=== PATIENT | female | born 1955 | race Caucasian/White ===

== ENCOUNTER → 2016-08-05 | Outpatient (CLI) | payer BC | LOC: RAD 09:14 | PROVIDERS: ATTEND Family Medicine | DX: R11.10 Vomiting, unspecified (principal) | CPT/HCPCS: 74220 ==

== ENCOUNTER → 2016-10-31 | Outpatient (CLI) | payer BC ==
--- NOTE | 2016-10-31 14:40 | WOMENS IMAGING REPORT ---
EXAM DESCRIPTION: BILAT SCREENING MAMMO W/CAD COMPLETED DATE/TIME: 10/31/2016 2:05 pm REASON FOR STUDY: Z12.31, ROUTINE SCREENING MAMMO Z12.31 ENCNTR SCREEN MAMMOGRAM FOR MALIGNANT NEOP LASM OF YADY COMPARISON: 10/27/2015 and 09/05/2014. TECHNIQUE: Standard craniocaudal and mediolateral oblique views of each breast recorded using digita l acquisition. LIMITATIONS: None. FINDINGS: Findings present which are benign by mammographic criteria. No suspicious masses, calcifi cations or architectural distortion. Pertinent benign findings: Stable small nodule in the upper-outer right breast and benign calcificati ons in the left breast. Read with the assistance of CAD. .[facility] - R2 Cenova Version 1.3 .[facility] - R2 Cenova Version 1.3 .[facility] - R2 Cenova Version 2.4 .[facility] [place] - R2 Cenova Version 2.4 .[facility] - R2 Wet Trimmer Version 9.2 Benign mammographic findings may include one or more of the following: Smooth masses, popcorn/rim/co arse calcifications, asymmetries, post-procedure changes, and lesions with long-standing stability. IMPRESSION: BENIGN MAMMOGRAPHIC FINDINGS. BIRADS 2 BREAST DENSITY: b. There are scattered areas of fibroglandular density. BIRAD: 2 BENIGN FINDING(S) RECOMMENDATION: ROUTINE SCREENING COMMENT: The patient has been notified of the results by letter per SA requirements. Additional no tification policies are in place for contacting patient with suspicious or incomplete findings. Quality ID #[id number]: The [employer] recommends an annual screening mammogram for women aged 40 years or over. This facility utilizes a reminder system to ensure that all patients receive reminder letters, and/or direct phone calls for appointments. This includes reminders for routine scr eening mammograms, diagnostic mammograms, or other Breast Imaging Interventions when appropriate. Th is patient will be placed in the appropriate reminder system. The [employer] (ACR) has developed recommendations for screening MRI of the breast s in certain patient populations, to be used in conjunction with mammography. Breast MRI surveillanc e may be appropriate for women with more than 20% lifetime risk of developing breast cancer as deter mined by genetic testing, significant family history of the disease, or history of mantle radiation f or Hodgkins Disease. ACR Practice Guidelines 2008. TECHNICAL DOCUMENTATION: FINDING NUMBER: (1) ASSESSMENT: (1) JOB ID: [id number] [employer]- All Rights Reserved
== END ==
LOC: WI 13:51
PROVIDERS: ATTEND Family Medicine
DX: Z12.31 Encounter for screening mammogram for malignant neoplasm of breast (principal)
CPT/HCPCS: 77067; G0202

== ENCOUNTER 2017-04-28 14:00 | Inpatient (IN) | payer BC ==
[2017-04-28] MEDS ORDERED: OXYCODONE-ACETAMINOPHEN 5-325 MG TABLET PO ONE (14:17)
[2017-04-28] MEDS ORDERED: ONDANSETRON 4 MG TAB.RAPDIS PO ONE (14:17)
--- NOTE | 2017-04-28 14:19 | ER Document Report ---
ED Medical Screen (RME) - General Chief Complaint: Chest Pain Stated Complaint: CHEST PAIN,JAW PAIN Time Seen by Provider: 04/28/17 14:12 Notes: This 62-year-old female patient comes emergency room complaining of chest pains started yesterday afternoon about 3 PM. Pain started in her left scapular area and radiates to the left anterior chest. It also went up into both jaws and into her neck. She reports her vision felt blurry. She reports her left arm feels heavy. Her history is significant for an incidental fusiform ascending aortic aneurysm found here in October 2015. It was 4.5 cm at that time, a CT scan in February 2017 was 4.75 cm. Brief exam shows the left anterior chest wall be exquisitely tender. The left scapular muscles are very tender. The posterior cervical muscles are somewhat tender. She does not normally take pain medication. I have greeted and performed a rapid initial assessment of this patient. A comprehensive ED assessment and evaluation of the patient, analysis of test results and completion of the medical decision making process will be conducted by additional ED providers. TRAVEL OUTSIDE OF THE [place] IN LAST 30 DAYS: No - Related Data Allergies/Adverse Reactions: No Known Allergies Allergy (Verified 04/28/17 14:01) Past Medical History - Past Medical History Cardiac Medical History: Reports: Hx Hypertension Past Surgical History: Reports: Hx Appendectomy, Hx Section, Hx Cholecystectomy, Hx Orthopedic Surgery, Hx Tonsillectomy Physical Exam - Vital signs Vitals: Temp Pulse Resp BP Pulse Ox 97.9 F 70 17 103/72 97 04/28/17 14:11 04/28/17 14:11 04/28/17 14:11 04/28/17 14:11 04/28/17 14:11 Course - Vital Signs Vital signs: Temp Pulse Resp BP Pulse Ox 97.9 F 70 17 103/72 97 04/28/17 14:11 04/28/17 14:11 04/28/17 14:11 04/28/17 14:11 04/28/17 14:11
[2017-04-28 14:50] LABS: ABSOLUTE BASOPHILS # (AUTO) 0.1 10^3/uL (0.0-0.2); ABSOLUTE EOSINOPHILS # (AUTO) 0.2 10^3/uL (0.0-0.6); ABSOLUTE LYMPHOCYTES (AUTO) 1.8 10^3/uL (0.5-4.7); ABSOLUTE MONOCYTES (AUTO) 0.8 10^3/uL (0.1-1.4); ABSOLUTE NEUT (AUTO) 4.2 10^3/uL (1.7-8.2); EOSINOPHILS % (AUTO) 3.1 % (0-6); HEMATOCRIT 31.3 % (36.0-47.0); HEMOGLOBIN 10.1 g/dL (12.0-15.5); LYMPHOCYTES % (AUTO) 25.8 % (13-45); MEAN CORPUSCULAR HEMOGLOBIN 23.9 pg (27.0-33.4); MEAN CORPUSCULAR HGB CONC 32.4 g/dL (32.0-36.0); MEAN CORPUSCULAR VOLUME 74 fl (80-97); MONOCYTES % (AUTO) 10.9 % (3-13); RED BLOOD COUNT 4.24 10^6/uL (3.72-5.28); RED CELL DISTRIBUTION WIDTH 16.8 % (11.5-14.0); SEGMENTED NEUTROPHILS % (AUTO) 59.2 % (42-78); WHITE BLOOD COUNT 7.1 10^3/uL (4.0-10.5)
[2017-04-28] MEDS ORDERED: NORMAL SALINE 1000 ML 1,000 ML IV PRN (15:02)
[2017-04-28 15:09] LABS: ALANINE AMINOTRANSFERASE 34 U/L (9-52); ALBUMIN 4.2 g/dL (3.5-5.0); ALKALINE PHOSPHATASE 113 U/L (38-126); ANION GAP 14 (5-19); ASPARTATE AMINO TRANSFERASE 20 U/L (14-36); BILIRUBIN,DIRECT 0.2 mg/dL (0.0-0.4); BILIRUBIN,TOTAL 0.2 mg/dL (0.2-1.3); BLOOD UREA NITROGEN 25 mg/dL (7-20); CALCIUM 8.6 mg/dL (8.4-10.2); CARBON DIOXIDE 22 mmol/L (22-30); CHLORIDE 103 mmol/L (98-107); CREATINE KINASE 65 U/L (30-135); CREATININE RESULT 1.14 mg/dL (0.52-1.25); GLUCOSE 86 mg/dL (75-110); POTASSIUM 4.5 mmol/L (3.6-5.0); SODIUM 138.9 mmol/L (137-145); TOTAL PROTEIN 6.5 g/dL (6.3-8.2)
--- NOTE | 2017-04-28 16:04 | RADIOLOGY REPORT (SQ) ---
EXAM DESCRIPTION: CTA ABDOMEN/PELVIS W WO COMPLETED DATE/TIME: 04/28/2017 3:42 pm REASON FOR STUDY: aortic aneurysm, chest pain COMPARISON: None. TECHNIQUE: CT scan of the abdominal aorta extending to the iliac bifurcation performed with intrave nous contrast using helical scanning technique with dynamic intravenous contrast injection. Images re viewed with lung, soft tissue, and bone windows. Reconstructed coronal and sagittal MPR images review ed. All images stored on PACS. Advanced 3D imaging as volume rendering, MIPS, SSD performed? yes All CT scanners at this facility use dose modulation, iterative reconstruction, and/or weight based d osing when appropriate to reduce radiation dose to as low as reasonably achievable (ALARA). [facility]: Dose Right [facility]: CareDose [facility]: Dose Right [facility]: Teradose 4D [facility]: CommProve CONTRAST TYPE AND DOSE: contrast/concentration: Isovue 370.00 mg/ml; Total Contrast Delivered: 76.0 ml; Total Saline Delivered: 72.1 ml RENAL FUNCTION: Creatinine 1.1 LIMITATIONS: None. FINDINGS: AORTA AND VESSELS: Normal caliber abdominal aorta with patent mesenteric and bilateral jamshid al arteries. No evidence of significant stenosis. No gross venous clot suggested, phase of contrast during arterial evaluation somewhat limits assessment of the venous system. LUNG BASES: See CTA chest separately dictated. LIVER: Normal size. No masses or dilated ducts. SPLEEN: Normal size. No focal lesions. PANCREAS: Fatty atrophy throughout the pancreas. No inflammatory changes or mass. No evidence of du ct dilatation. GALLBLADDER: Surgically absent. ADRENAL GLANDS: No significant masses or asymmetry. RIGHT KIDNEY AND URETER: No mass, calculi or urinary tract obstruction. LEFT KIDNEY AND URETER: No mass, calculi or urinary tract obstruction. RETROPERITONEUM: No enlarged nodes. Calcified phleboliths. BOWEL AND PERITONEAL CAVITY: Gastric bypass. Moderate to large amount of stool throughout the colon. No suggestion of bowel obstruction. No bowel related inflammatory changes. No ascites or abnormal gas. APPENDIX: Surgically absent. ABDOMINAL WALL: No masses. No hernias. PELVIS: Normal bladder. No pelvic mass or free fluid. BONY STRUCTURES: No significant or acute findings. 3-D IMAGING: Confirms the above findings. OTHER: No other significant finding. IMPRESSION: 1. No evidence of abdominal aortic aneurysm or dissection. No acute abdominopelvic abn ormality. Stool retention as above. TECHNICAL DOCUMENTATION: JOB ID: [id number] Quality ID # [id number]: Final reports with documentation of one or more dose reduction techniques (e.g., Au tomated exposure control, adjustment of the mA and/or kV according to patient size, use of iterative reconstruction technique) 2010 [employer]- All Rights Reserved
--- NOTE | 2017-04-28 16:06 | RADIOLOGY REPORT (SQ) ---
EXAM DESCRIPTION: CTA CHEST COMPLETED DATE/TIME: 04/28/2017 3:42 pm REASON FOR STUDY: chest pain, aortic aneurysm COMPARISON: 11/11/2015 TECHNIQUE: CT scan of the chest performed using helical scanning technique with dynamic intravenous contrast injection. Images reviewed with lung, soft tissue and bone windows. Reconstructed coronal and sagittal MPR images reviewed. Additional 3 dimensional post-processing performed to develop Maximal Intensity Projection images (ND P). All images stored on PACS. All CT scanners at this facility use dose modulation, iterative reconstruction, and/or weight based d osing when appropriate to reduce radiation dose to as low as reasonably achievable (ALARA). [facility]: Dose Right [facility]: CareDose [facility]: Dose Right [facility]: Teradose 4D [facility]: [employer] CONTRAST TYPE AND DOSE: 76 cc Isovue 370- low osmolar. Contrast bolus adequate for pulmonary arteries and aorta. RENAL FUNCTION: Creatinine 1.14 BUN 25 RADIATION DOSE: . LIMITATIONS: None. FINDINGS: LUNGS AND PLEURA: No masses, infiltrates, pneumothorax. No pleural effusions, calcificati ons. AORTA AND GREAT VESSELS: Maximum measured dimensions of the ascending aorta on image 56 series 3: 43 .5 x 41.7 mm. There is no dissection. HEART: No pericardial effusion. PULMONARY ARTERIES: No emboli visualized in the main pulmonary arteries or the segmental branches. HILAR AND MEDIASTINAL STRUCTURES: No identified masses or abnormal nodes. HARDWARE: None in the chest. UPPER ABDOMEN: See separate report of the CT of the abdomen. THYROID AND OTHER SOFT TISSUES: No masses. No adenopathy. BONES: No acute or significant finding. 3D MIPS: Confirm above findings. OTHER: No other significant finding. IMPRESSION: No pulmonary emboli. No enlargement of the ascending aorta compared to the earlier stud y. No dissection. Findings as described. COMMENT: Quality ID # [id number]: Final reports with documentation of one or more dose reduction techniques (e.g., Automated exposure control, adjustment of the mA and/or kV according to patient size, use of iterative reconstruction technique) TECHNICAL DOCUMENTATION: JOB ID: [id number]- All Rights Reserved
--- NOTE | 2017-04-28 16:46 | ER Document Report ---
ED General - General Chief Complaint: Chest Pain Stated Complaint: CHEST PAIN,JAW PAIN Time Seen by Provider: 04/28/17 14:12 Mode of Arrival: Ambulatory Information source: Patient Notes: 62-year-old female presents with complaints of chest pain. Patient has a history of ascending aneurysm denies any fevers or chills notes she began having midsternal chest pressure radiating to both jaw both arms is prior to arrival. Patient sent in by PCP for further evaluation Patient denies any history of any coronary artery disease TRAVEL OUTSIDE OF THE [place] IN LAST 30 DAYS: No - HPI Onset: Just prior to arrival Onset/Duration: Sudden Quality of pain: Pressure Severity: Moderate Pain Level: 2 Associated symptoms: Chest pain, Shortness of breath Exacerbated by: Denies Relieved by: Denies Similar symptoms previously: No Recently seen / treated by doctor: Yes - Related Data Allergies/Adverse Reactions: No Known Allergies Allergy (Verified 04/28/17 14:01) Home Medications: Current Home Medications Bupropion HCl [Bupropion Xl] 150 mg PO DAILY 04/28/17 [History] Carisoprodol [Soma] 250 mg PO HSP PRN 04/28/17 [History] Docusate Sodium [Colace 100 mg Capsule] 100 mg PO DAILYP PRN 04/28/17 [History] Ferrous Sulfate [Feosol 325 mg Tablet] 325 mg PO BID 04/28/17 [History] Levothyroxine Sodium [Synthroid] 175 mcg PO Q6AM 04/28/17 [History] Lisinopril/Hydrochlorothiazide [Lisinopril-Hctz 20-12.5 mg Tab] 1 tab PO DAILY 04/28/17 [History] Meloxicam [Mobic] 15 mg PO DAILY 04/28/17 [History] Past Medical History - Social History Smoking Status: Never Smoker Cigarette use (# per day): No Chew tobacco use (# tins/day): No Smoking Education Provided: No Frequency of alcohol use: None Drug Abuse: None Family History: Reviewed & Not Pertinent Patient has suicidal ideation: No Patient has homicidal ideation: No - Past Medical History Cardiac Medical History: Reports: Hx Hypertension Renal/ Medical History: Denies: Hx Peritoneal Dialysis Past Surgical History: Reports: Hx Appendectomy, Hx Section, Hx Cholecystectomy, Hx Orthopedic Surgery, Hx Tonsillectomy Review of Systems - Review of Systems Notes: REVIEW OF SYSTEMS: CONSTITUTIONAL : Denies fever, chills, or sweats. Denies recent illness. EENT: Denies eye, ear, throat, or mouth pain or symptoms. Denies nasal or sinus congestion or discharge. Denies throat, tongue, or mouth swelling or difficulty swallowing. CARDIOVASCULAR: Admits to chest pain RESPIRATORY: Admits shortness of breath GASTROINTESTINAL: Denies abdominal pain or distention. Denies nausea, vomiting , or diarrhea. Denies blood in vomitus, stools, or per rectum. Denies black, tarry stools. Denies constipation. GENITOURINARY: Denies difficulty urinating, painful urination, burning, frequency, blood in urine, or discharge. FEMALE GENITOURINARY: Denies vaginal bleeding, heavy or abnormal periods, irregular periods. Denies vaginal discharge or odor. MUSCULOSKELETAL: Denies back or neck pain or stiffness. Denies joint pain or swelling. SKIN: Denies rash, lesions or sores. HEMATOLOGIC : Denies easy bruising or bleeding. LYMPHATIC: Denies swollen, enlarged glands. NEUROLOGICAL: Denies confusion or altered mental status. Denies passing out or loss of consciousness. Denies dizziness or lightheadedness. Denies headache. Denies weakness or paralysis or loss of use of either side. Denies problems with gait or speech. Denies sensory loss, numbness, or tingling. Denies seizures. PSYCHIATRIC: Denies anxiety or stress. Denies depression, suicidal ideation, or homicidal ideation. ALL OTHER SYSTEMS REVIEWED AND NEGATIVE. PHYSICAL EXAMINATION: GENERAL: Well-appearing, well-nourished and in no acute distress. HEAD: Atraumatic, normocephalic. EYES: Pupils equal round and reactive to light, extraocular movements intact, conjunctiva are normal. ENT: Nares patent, oropharynx clear without exudates. Moist mucous membranes. NECK: Normal range of motion, supple without lymphadenopathy LUNGS: Breath sounds clear to auscultation bilaterally and equal. No wheezes rales or rhonchi. HEART: Regular rate and rhythm without murmurs ABDOMEN: Soft, nontender, nondistended abdomen. No guarding, no rebound. No masses appreciated. Female : deferred Musculoskeletal: Normal range of motion, no pitting or edema. No cyanosis. NEUROLOGICAL: Cranial nerves grossly intact. Normal speech, normal gait. Normal sensory, motor exams PSYCH: Normal mood, normal affect. SKIN: Warm, Dry, normal turgor, no rashes or lesions noted. Dictation was performed using [email or web address] voice recognition software Physical Exam - Vital signs Vitals: Temp Pulse Resp BP Pulse Ox 97.9 F 70 17 103/72 97 04/28/17 14:11 04/28/17 14:11 04/28/17 14:11 04/28/17 14:11 04/28/17 14:11 Course - Re-evaluation Re-evalutation: 04/28/17 19:09 Upon me evaluation patient is noted to be hypotensive, 3 large-bore IVs were placed patient was immediately started on IV fluids was given 2 L bolus, her blood pressure did drop as low as 60s over 40s, I am unsure of the cause of the patient's hypotension, a stat echo was performed with an ejection fraction of 65 % with no cardiac tamponade. Patient was admitted to the hospitalist service. - Vital Signs Vital signs: Temp Pulse Resp BP Pulse Ox 97.9 F 70 20 82/60 L 97 04/28/17 14:11 04/28/17 14:11 04/28/17 15:01 04/28/17 15:00 04/28/17 15:01 - Laboratory Result Diagrams: 04/28/17 14:39 04/28/17 14:39 Laboratory results interpreted by me: 04/28/17 04/28/17 04/28/17 14:39 14:39 14:39 Hgb 10.1 L Hct 31.3 L MCV 74 L MCH 23.9 L RDW 16.8 H D-Dimer 0.61 H BUN 25 H Est GFR ( Amer) 59 L Est GFR (Non-Af Amer) 49 L - Diagnostic Test Radiology reviewed: Image reviewed, Reports reviewed - EKG Interpretation by Me EKG shows normal: Sinus rhythm, [place], Intervals, QRS Complexes Critical Care Note - Critical Care Note Total time excluding time spent on procedures (mins): 34 Comments: 34 minutes of critical care time spent in direct contact evaluating and reevaluating the patient, treating symptoms, reviewing labs and studies and speaking with family and consultants excluding any procedures Discharge - Discharge Clinical Impression: Hypotension Qualifiers: Hypotension type: unspecified hypotension type Qualified Code(s): I95.9 - Hypotension, unspecified Chest pain Qualifiers: Chest pain type: unspecified Qualified Code(s): R07.9 - Chest pain, unspecified Condition: Fair Disposition: ADMITTED INPATIENT Admitting Provider: Hospitalist Unit Admitted: ICU
[2017-04-28] MEDS ORDERED: ONDANSETRON HCL INJ/PF 4 MG/2 ML SDV IV PRN (18:19)
[2017-04-28] MEDS ORDERED: ONDANSETRON 4 MG TAB.RAPDIS PO PRN (18:19)
--- NOTE | 2017-04-28 18:46 | PDOC H&P ---
History of Present Illness Admission Date/PCP: 04/28/17 17:26 PCP: Dr. Doug Manley Barley Steeper: Dr. Greer CT Surgeon: Dr. prasad, [facility] Patient complains of: Chest pain radiating to back, neck, arms History of Present Illness: KINGSLEY BORGES is a 62 year old female with a past medical history of Hypertension Hypothyroidism Ascending aortic aneurysm Anemia, colonoscopy last year polypectomy done Endoscopy last year was normal Left heart catheterization in 2016 reported as no coronary artery disease per patient History of cellulitis of the abdominal wall History of ankle osteomyelitis status post antibiotic treatment in January of this year Insomnia Depression Patient presented to the emergency room on April 28 complaining of sharp chest pain in the center of her chest which radiates to her back both her arms and her jaw. The patient first developed the chest pain yesterday morning while she was standing outside her home speaking to her neighbor. It was not related to exertion or food. The pain came on suddenly was sharp and it lasted approximately 10 minutes. She denies any associated palpitations or shortness of breath. It did get worse with inspiration. The pain subsided on its own. Later that night around 11 PM the patient developed the pain again at this time it lasted approximately 5-10 minutes. She did not take anything for the pain and went to sleep. This morning the pain recurred again and lasted approximately 10 minutes. She called her thoracic surgeon who recommended that she come to the emergency room. Her initial workup was remarkable for systolic blood pressure 60s. Blood pressure came up to the 80s with 2 L of IV normal saline. Her current blood pressure is 96/59. She denies any chest pain at present. Patient denies any recent illness fevers cough or sore throat. No sick contacts. She has never smoked in her life. Does not drink alcohol. She has known ascending aortic aneurysm approximately 4 x 4 cm in diameter which is followed at [facility]. There were plans for surgical repair in January of this year however it was postponed because she developed osteomyelitis of the right ankle requiring a prolonged course of antibiotics. Twelve-lead EKG in the emergency room showed sinus rhythm with no acute ST segment or T-wave changes. Cardiac enzymes were negative. Past Medical History Cardiac Medical History: Reports: Hyperlipidema, Hypertension Pulmonary Medical History: Reports: None EENT Medical History: Reports: None Neurological Medical History: Reports: None Endocrine Medical History: Reports: Hypothyroidism Renal/ Medical History: Reports: None Malignancy Medical History: Reports: None GI Medical History: Reports: None Musculoskeltal Medical History: Reports: Arthritis Skin Medical History: Reports: None Psychiatric Medical History: Reports: Depression Hematology: Reports: Anemia Past Surgical History Past Surgical History: Reports: Appendectomy, Section, Cholecystectomy , Orthopedic Surgery, Tonsillectomy Social History Smoking Status: Never Smoker Frequency of Alcohol Use: None Hx Recreational Drug Use: No Drugs: None Hx Prescription Drug Abuse: No - Advance Directive Resuscitation Status: Full Code Surrogate healthcare decision maker:: Mr. Ahmet Borges. Phone #[phone] Family History Family History: Reviewed & Not Pertinent Family History: Coronary artery disease. Her father and uncle both of abdominal aortic aneurysm rupture Parental Family History Reviewed: Yes Children Family History Reviewed: Yes Sibling(s) Family History Reviewed.: Yes Medication/Allergy Home Medications: Bupropion HCl [Bupropion Xl] 150 mg PO DAILY 04/28/17 Carisoprodol [Soma] 250 mg PO HSP PRN 04/28/17 Docusate Sodium [Colace 100 mg Capsule] 100 mg PO DAILYP PRN 04/28/17 Ferrous Sulfate [Feosol 325 mg Tablet] 325 mg PO BID 04/28/17 Levothyroxine Sodium [Synthroid] 175 mcg PO Q6AM 04/28/17 Lisinopril/Hydrochlorothiazide [Lisinopril-Hctz 20-12.5 mg Tab] 1 tab PO DAILY 04/28/17 Meloxicam [Mobic] 15 mg PO DAILY 04/28/17 Allergies/Adverse Reactions: No Known Allergies Allergy (Verified 04/28/17 14:01) Review of Systems Constitutional: ABSENT: as per HPI, anorexia, chills, fatigue, fever(s), headache(s), night sweats, weakness, weight gain, weight loss, other Eyes: ABSENT: as per HPI, visual disturbances, other Ears: ABSENT: as per HPI, hearing changes, other Nose, Mouth, and Throat: ABSENT: as per HPI, headache(s), mouth pain, sore throat, vertigo, other Cardiovascular: PRESENT: chest pain - At present. ABSENT: as per HPI, dyspnea on exertion, edema, orthropnea, palpitations, other Respiratory: ABSENT: as per HPI, cough, dyspnea, hemoptysis, sputum, other Gastrointestinal: ABSENT: as per HPI, abdominal pain, bloating, coffee ground emesis, constipation, diarrhea, dysphagia, heartburn, hematemesis, hematochezia , melena, nausea, vomiting, other Genitourinary: ABSENT: as per HPI, difficulty urinating, dysuria, hematuria, nocturia, other Musculoskeletal: PRESENT: other - Chronic right ankle pain Integumentary: ABSENT: rash, wounds Neurological: ABSENT: abnormal gait, abnormal speech, confusion, dizziness, focal weakness, syncope Psychiatric: PRESENT: depression Endocrine: ABSENT: as per HPI, cold intolerance, flushing, heat intolerance, menstrual abnormalities, polydipsia, polyphagia, polyuria, other Hematologic/Lymphatic: ABSENT: as per HPI, easy bleeding, easy bruising, lymphadenopathy, other Physical Exam Vital Signs: Temp Pulse Resp BP Pulse Ox 97.9 F 70 20 82/60 L 97 04/28/17 14:11 04/28/17 14:11 04/28/17 15:01 04/28/17 15:00 04/28/17 15:01 Additional comments: Middle-aged female lying in bed not in acute distress Head is normocephalic atraumatic she has some tenderness of the muscles in the back of her neck. Range of motion of the neck is normal No JVD or masses trachea is midline No jugular venous distention Lungs: Clear to auscultation bilaterally with normal respiratory effort HEENT: Pupils equal reactive to light, dry pink oropharyngeal mucosa with no lesions Conjunctival discharge no icterus normal external ears and nose Cardiac: S1-S2 regular no murmurs heard no thrills palpable no peripheral edema no calf tenderness no cyanosis Abdomen: Soft, no focal tenderness, obese, normal bowel sounds Skin: Warm and dry Neurologic: Awake alert oriented 3 no shoulder droop, speech is clear and fluent Results Impressions: Abdomen/Pelvis CTA 04/28/17 14:26 IMPRESSION: 1. No evidence of abdominal aortic aneurysm or dissection. No acute abdominopelvic abnormality. Stool retention as above. Chest/Abdomen CTA 04/28/17 15:16 IMPRESSION: No pulmonary emboli. No enlargement of the ascending aorta compared to the earlier study. No dissection. Findings as described. Status: Image reviewed by me Assessment & Plan - Diagnosis (1) Chest pain Is this a current diagnosis for this admission?: Yes Plan: Admit to ICU given associated hypotension and history of ascending aortic aneurysm. Check serial cardiac enzymes and EKG in the morning. Echocardiogram done in the ER stat showed an ejection fraction of 65% with no pericardial effusion or evidence of tamponade. Continue IV fluids. Monitor blood pressure closely. (2) Hypotension Is this a current diagnosis for this admission?: Yes Plan: No evidence of cardiac tamponade not. Patient is not septic. Hold blood pressure during medications. Continue IV fluids and continue to monitor closely. - Time Critical Time spent with patient: 35 or more minutes - Inpatient Certification Medical Necessity: Significant Comorbidiites Make Outpatient Treatment Too Risky , Need Close Monitoring Due to Risk of Patient Decompensation, Need For IV Fluids, Need For Continuous Telemetry Monitoring, Risk of Complication if Not Cared For in Hospital, Risk of Diagnosis Which Will Require Inpatient Eval/Care/ Monitoring
--- NOTE | 2017-04-28 21:00 | EKG REPORT ---
SEVERITY:- NORMAL ECG - SINUS RHYTHM : Confirmed by: Gamaliel Castillo 28-Apr-2017 21:00:03
[2017-04-28] MEDS: BUPROPION HCL 75 MG TABLET PO SCH (21:52)
[2017-04-28 22:18] LABS: CREATINE KINASE MB < 0.22 ng/mL (<4.55); TROPONIN I < 0.012 ng/mL
[2017-04-28 23:29] LABS: APPEARANCE,URINE CLEAR; BILIRUBIN,URINE NEGATIVE (NEGATIVE); GLUCOSE, URINE NEGATIVE (NEGATIVE); KETONES,URINE NEGATIVE (NEGATIVE); LEUKOCYTE ESTERASE,URINE NEGATIVE (NEGATIVE); NITRITE,URINE NEGATIVE (NEGATIVE); PROTEIN,URINE NEGATIVE (NEGATIVE); UROBILINOGEN,URINE NEGATIVE mg/dL (<2.0)
[2017-04-28 23:43] LABS: URINE BARBITURATES SCREEN NEGATIVE; URINE METHADONE SCREEN NEGATIVE; URINE OPIATES LOW NEGATIVE; URINE PHENCYCLIDINE SCREEN NEGATIVE
[2017-04-29] MEDS: NORMAL SALINE 1000 ML 1,000 ML IV PRN ×2 (03:35→05:14)
[2017-04-29 04:08] LABS: ABSOLUTE EOSINOPHILS # (AUTO) 0.2 10^3/uL (0.0-0.6); ABSOLUTE LYMPHOCYTES (AUTO) 1.9 10^3/uL (0.5-4.7); ABSOLUTE MONOCYTES (AUTO) 0.5 10^3/uL (0.1-1.4); BASOPHILS % (AUTO) 0.2 % (0-2); EOSINOPHILS % (AUTO) 2.9 % (0-6); HEMOGLOBIN 9.7 g/dL (12.0-15.5); HGB HCT DIFFERENCE -0.9; LYMPHOCYTES % (AUTO) 33.5 % (13-45); MEAN CORPUSCULAR HEMOGLOBIN 23.8 pg (27.0-33.4); MEAN CORPUSCULAR HGB CONC 32.3 g/dL (32.0-36.0); MEAN CORPUSCULAR VOLUME 74 fl (80-97); MONOCYTES % (AUTO) 9.6 % (3-13); RED BLOOD COUNT 4.07 10^6/uL (3.72-5.28); SEGMENTED NEUTROPHILS % (AUTO) 53.8 % (42-78); WHITE BLOOD COUNT 5.6 10^3/uL (4.0-10.5)
[2017-04-29 04:17] LABS: ALANINE AMINOTRANSFERASE 35 U/L (9-52); ALBUMIN 3.8 g/dL (3.5-5.0); ALKALINE PHOSPHATASE 103 U/L (38-126); AMYLASE 33 U/L (30-110); ANION GAP 9 (5-19); ASPARTATE AMINO TRANSFERASE 18 U/L (14-36); BILIRUBIN,DIRECT 0.2 mg/dL (0.0-0.4); BILIRUBIN,TOTAL 0.3 mg/dL (0.2-1.3); BLOOD UREA NITROGEN 14 mg/dL (7-20); CALCIUM 8.8 mg/dL (8.4-10.2); CARBON DIOXIDE 23 mmol/L (22-30); CHLORIDE 109 mmol/L (98-107); CHOLESTEROL 175.05 mg/dL (0-200); CREATININE RESULT 0.75 mg/dL (0.52-1.25); Direct HDL 54 mg/dL (>40); GLUCOSE 95 mg/dL (75-110); LIPASE 18.2 U/L (23-300); MAGNESIUM 2.3 mg/dL (1.6-2.3); POTASSIUM 4.6 mmol/L (3.6-5.0); SODIUM 141.2 mmol/L (137-145); TRIGLYCERIDES 117 mg/dL (<150)
[2017-04-29 04:28] LABS: DIRECT LDL 93 mg/dL (<100)
[2017-04-29 04:35] LABS: CREATINE KINASE MB < 0.22 ng/mL (<4.55); TROPONIN I < 0.012 ng/mL
[2017-04-29] MEDS: LANSOPRAZOLE 30 MG TAB.RAP.DR PO SCH ×2 (05:11→17:39)
[2017-04-29] MEDS ORDERED: LEVOTHYROXINE SODIUM 0.1 MG TABLET PO SCH (06:00)
[2017-04-29] MEDS ORDERED: (PENDING PHARMACY ID) (Levothyroxine Sodium [Synthroid] 175 MCG) PO SCH (06:00)
[2017-04-29] MEDS ORDERED: LEVOTHYROXINE SODIUM 0.075 MG TABLET PO SCH (06:00)
[2017-04-29] MEDS: BUPROPION HCL 75 MG TABLET PO SCH (09:12)
[2017-04-29] MEDS ORDERED: (PENDING PHARMACY ID) (Bupropion Hcl [Bupropion Xl] 150 MG) PO SCH (10:00)
[2017-04-29 10:55] LABS: CREATINE KINASE MB < 0.22 ng/mL (<4.55); TROPONIN I < 0.012 ng/mL
--- NOTE | 2017-04-29 12:17 | XCELERA REPORT ---
[address] [address] Transthoracic Echocardiogram Report Name: KINGSLEY STODDARD Age: 62 yrs Gender: Female : 1955 Patient Status: Inpatient Patient Location: [place] [address]^A Study Date: 04/28/2017 05:07 PM Height: 62 in Weight: 196 lb BSA: 1.9 m2 Procedure: A two-dimensional transthoracic echocardiogram with color flow and Doppler was performed. Study Quality: Good. Reason For Study: HYPOTENSION History: HYPOTENSION. Ordering Physician: JENS LOBO Performed By: Wendy Rosen Interpretation Summary The left ventricle is normal in size. There is normal left ventricular wall thickness. LV EF is > than 60% Left ventricular systolic function is normal. Doppler measurements suggest normal left ventricular diastolic function The left ventricular wall motion is normal. There is no thrombus. There is no ventricular septal defect visualized. The right ventricle is normal in size and function. The right atrium is normal. The left atrial size is normal. The interatrial septum is intact with no evidence for an atrial septal defect. There is no evidence of mitral valve prolapse. There is no vegetation seen on the mitral valve. There is no mitral valve stenosis. There is a trace amount of mitral regurgitation There is no aortic valvular vegetation. There is no aortic valve stenosis There is no LVOT obstruction. No aortic regurgitation is present. There is no tricuspid stenosis. There is a mild amount of tricuspid regurgitation Right ventricular systolic pressure is at the upper limits of normal RVSP is 30 m pf Hg , with RA mean of 5. There is no pulmonic valvular stenosis. There is no pulmonic valvular regurgitation. The aortic root is normal size. Acsrnding Aorta is moderately increased at 44 mm . There is no pericardial effusion. MMode/2D Measurements & Calculations RVDd: 3.5 cm LVIDd: 4.3 cm FS: 36.0 % Ao root diam: 3.0 cm IVSd: 0.84 cm LVIDs: 2.8 cm EDV(Teich): 82.9 ml LVPWd: 0.91 cm ESV(Teich): 28.3 ml Ao root area: 7.0 cm2 EF(Teich): 65.9 % LA dimension: 2.6 cm Doppler Measurements & Calculations MV E max una: MV P1/2t max una: Ao V2 max: LV V1 max P.1 cm/sec 72.1 cm/sec 152.0 cm/sec 3.8 mmHg MV A max una: MV P1/2t: 59.2 msec Ao max PG: LV V1 max: 66.6 cm/sec 9.2 mmHg 97.7 cm/sec MV E/A: 1.1 MVA(P1/2t): 3.7 cm2 MV dec slope: 356.6 cm/sec2 PA V2 max: TR max una: 59.2 cm/sec 247.0 cm/sec PA max PG: TR max P.4 mmHg 1.4 mmHg Left Ventricle The left ventricle is normal in size. There is normal left ventricular wall thickness. LV EF is > than 60%. Left ventricular systolic function is normal. Doppler measurements suggest normal left ventricular diastolic function. The left ventricular wall motion is normal. There is no thrombus. There is no ventricular septal defect visualized. Right Ventricle The right ventricle is normal in size and function. Atria The right atrium is normal. The left atrial size is normal. The interatrial septum is intact with no evidence for an atrial septal defect. Mitral Valve There is no evidence of mitral valve prolapse. There is no vegetation seen on the mitral valve. There is no mitral valve stenosis. There is a trace amount of mitral regurgitation. Aortic Valve There is no aortic valvular vegetation. There is no aortic valve stenosis. There is no LVOT obstruction. No aortic regurgitation is present. Tricuspid Valve There is no tricuspid stenosis. There is a mild amount of tricuspid regurgitation. Right ventricular systolic pressure is at the upper limits of normal. RVSP is 30 m pf Hg , with RA mean of 5. Pulmonic Valve There is no pulmonic valvular stenosis. There is no pulmonic valvular regurgitation. Great Vessels The aortic root is normal size. Acsrnding Aorta is moderately increased at 44 mm . Effusions There is no pericardial effusion. : JENS LOBO > Evleine Duque
[2017-04-29 14:38] VITALS: BP 125/84
[2017-04-29] MEDS ORDERED: MELOXICAM 15 MG TABLET PO ONE ×2 (16:59→17:45)
[2017-04-29] MEDS ORDERED: MELOXICAM 15 MG TABLET ONE (17:36)
[2017-04-29] MEDS ORDERED: METOPROLOL TARTRATE 25 MG TABLET PO SCH (22:00)
[2017-04-30] MEDS ORDERED: MELOXICAM 15 MG TABLET PO SCH (10:00)
--- NOTE | 2017-04-30 13:17 | PDOC DISCHARGE SUMMARY ---
General - Admit/Disc Date/PCP Admission Date/Primary Care Provider: 04/28/17 17:26 Dr. Russo Discharge Date: 04/29/17 - Discharge Diagnosis (1) Chest pain Is this a current diagnosis for this admission?: Yes (2) Hypotension Is this a current diagnosis for this admission?: Yes - Additional Information Resuscitation Status: Full Code Discharge Diet: As Tolerated Home Medications: Aspirin [Aspirin EC] 81 mg PO DAILY 04/28/17 Bupropion HCl [Bupropion Xl] 150 mg PO DAILY 04/28/17 Carisoprodol [Soma] 250 mg PO HSP PRN 04/28/17 Docusate Sodium [Colace 100 mg Capsule] 100 mg PO DAILYP PRN 04/28/17 Ferrous Sulfate [Feosol 325 mg Tablet] 325 mg PO BID 04/28/17 Gabapentin [Neurontin 300 mg Capsule] 600 mg PO Q8 04/28/17 Levothyroxine Sodium [Synthroid] 175 mcg PO Q6AM 04/28/17 Meloxicam [Mobic] 15 mg PO DAILY 04/28/17 Promethazine HCl [Phenergan 25 mg Tablet] 25 mg PO Q6HP PRN 04/28/17 Metoprolol Tartrate [Lopressor 25 mg Tablet] 25 mg PO Q12 tablet 04/29/17 History of Present Illness History of Present Illness: KINGSLEY STODDARD is a 62 year old female with a past medical history of Hypertension Hypothyroidism Ascending aortic aneurysm Anemia, colonoscopy last year polypectomy done Endoscopy last year was normal Left heart catheterization in 2016 reported as no coronary artery disease per patient History of cellulitis of the abdominal wall History of ankle osteomyelitis status post antibiotic treatment in January of this year Insomnia Depression Patient presented to the emergency room on April 28 complaining of sharp chest pain in the center of her chest which radiates to her back both her arms and her jaw. The patient first developed the chest pain yesterday morning while she was standing outside her home speaking to her neighbor. It was not related to exertion or food. The pain came on suddenly was sharp and it lasted approximately 10 minutes. She denies any associated palpitations or shortness of breath. It did get worse with inspiration. The pain subsided on its own. Later that night around 11 PM the patient developed the pain again at this time it lasted approximately 5-10 minutes. She did not take anything for the pain and went to sleep. This morning the pain recurred again and lasted approximately 10 minutes. She called her thoracic surgeon who recommended that she come to the emergency room. Her initial workup was remarkable for systolic blood pressure 60s. Blood pressure came up to the 80s with 2 L of IV normal saline. Her current blood pressure is 96/59. She denies any chest pain at present. Patient denies any recent illness fevers cough or sore throat. No sick contacts. She has never smoked in her life. Does not drink alcohol. She has known ascending aortic aneurysm approximately 4 x 4 cm in diameter which is followed at [facility]. There were plans for surgical repair in January of this year however it was postponed because she developed osteomyelitis of the right ankle requiring a prolonged course of antibiotics. Twelve-lead EKG in the emergency room showed sinus rhythm with no acute ST segment or T-wave changes. Cardiac enzymes were negative. She was admitted to the intensive care unit for closer monitoring. Blood pressures remained in the 100s-120s systolic. She received gentle IV fluids she was closely monitored. Echocardiogram was performed and did not show any pericardial effusion. She remained chest pain-free. Repeat cardiac enzymes were negative. The patient was discharged home. Metoprolol dose was halved. HCTZ lisinopril was stopped. 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 Hospital Course Hospital Course: See above. Physical Exam Vital Signs: Temp Pulse Resp BP Pulse Ox 98.1 F 59 L 15 125/84 100 04/29/17 16:00 04/29/17 08:00 04/29/17 14:23 04/29/17 14:23 04/29/17 14:23 Intake & Output 04/28/17 04/29/17 04/30/17 06:59 06:59 06:59 Intake Total 300 720 Output Total 1300 1550 Balance -1000 -830 Weight 94.4 kg Additional comments: Middle-aged female sitting comfortably in bed not in acute distress Lungs: Clear to auscultation bilaterally normal respiratory effort Cardiac: S1-S2 regular, no peripheral edema. Abdomen: Soft nontender Results Laboratory Results: 04/29/17 03:50 04/29/17 03:50 04/29/17 04/29/17 04/29/17 03:50 03:50 03:50 WBC 5.6 RBC 4.07 Hgb 9.7 L Hct 30.0 L MCV 74 L MCH 23.8 L MCHC 32.3 RDW 17.0 H Plt Count 321 Seg Neutrophils % 53.8 Lymphocytes % 33.5 Monocytes % 9.6 Eosinophils % 2.9 Basophils % 0.2 Absolute Neutrophils 3.0 Absolute Lymphocytes 1.9 Absolute Monocytes 0.5 Absolute Eosinophils 0.2 Absolute Basophils 0.0 Sodium 141.2 Potassium 4.6 Chloride 109 H Carbon Dioxide 23 Anion Gap 9 BUN 14 Creatinine 0.75 Est GFR ( Amer) > 60 Est GFR (Non-Af Amer) > 60 Glucose 95 Calcium 8.8 Phosphorus 4.0 Magnesium 2.3 Total Bilirubin 0.3 AST 18 ALT 35 Alkaline Phosphatase 103 Total Protein 6.0 L Albumin 3.8 Triglycerides 117 Cholesterol 175.05 LDL Cholesterol Direct 93 VLDL Cholesterol 23.0 HDL Cholesterol 54 Amylase 33 Lipase 18.2 L TSH 2.79 04/28/17 04/29/17 04/29/17 21:36 03:50 10:02 CK-MB (CK-2) < 0.22 < 0.22 < 0.22 Troponin I < 0.012 < 0.012 < 0.012 NT-Pro-B Natriuret Pep 108 Impressions: Abdomen/Pelvis CTA 04/28/17 14:26 IMPRESSION: 1. No evidence of abdominal aortic aneurysm or dissection. No acute abdominopelvic abnormality. Stool retention as above. Chest/Abdomen CTA 04/28/17 15:16 IMPRESSION: No pulmonary emboli. No enlargement of the ascending aorta compared to the earlier study. No dissection. Findings as described. Echocardiogram: Normal left ventricle size Ventricular ejection fraction more than 60% normal systolic function normal diastolic function and no thrombus normal LV wall motion no ventricular septal defect No pericardial effusion. No significant valvular abnormality noted Qualifiers PATEINT BEING DISCHARGED WITH ANY OF THE FOLLOWING DIAGNOSIS?: No Plan Time Spent: Greater than 30 Minutes - Discharge home. Follow-up with primary care and cardiology Lisinopril and HCTZ stopped Metoprolol dose cut in half
--- NOTE | 2017-05-01 13:59 | Physician Advisory Note ---
Physician Advisor ProgressNote .: Pursuant to the [facility], I have reviewed the medical record for this patient. Physician Advisor Statement: Asked to review case r.e. status, post-discharge. Attending, please consider documenting, if you agree (symptoms need to be linked to most likely dx causes): 1. "CP, suspect due to " [cardiac ischemia/CAD/angina due to episodes of hypotension? trapezius muscle spasm? gastritis? ...] 2. "Hypotension, suspect most likely due to " [HCTZ/lisinopril/ metoprolol?, or intravascular volume depletion, or ...] 3. Discrepancy clarification: DCSummary includes HPI & Hosp course combined, including what appears to be copy/paste of HPI, which leads to the appearance of discrepancies such as "This morning the pain recurred again ... recommended she come to ER ... current BP is 96/59" in document created on date of d/c. - Please avoid copy/paste, but rather summarize (even of the HPI for DCSummary ), unless the section copied is fully edited each day it is used so it applies to the date of use / no apparent discrepancies result. Thanks for your help! CK R.e. status: pt with CP, with concerning risky associated co-morbidities/ factors, but CTs showing no evidence of aortic aneurysm dissection already prior to admission. At time of admission, it appears that it was not entirely clear whether CP was cardiac or due to any of a host of non-cardiac causes. It was not clearly likely to be due to dissection. For this reason, Observation status appears most appropriate in this case, with plan to change to Inpt admission (or d/c) once eval results sufficient.
== END 2017-04-29 18:15 | disposition home or self-care (01) | DRG 316 ==
LOC: ER 14:00 → EH 17:26 → ICU 21:15
PROVIDERS: ADMIT Hospitalist; ATTEND Hospitalist
DX: I95.9 Hypotension, unspecified (principal); R07.9 Chest pain, unspecified; E03.9 Hypothyroidism, unspecified; I71.2 Thoracic aortic aneurysm, without rupture; I10 Essential (primary) hypertension; F32.9 Major depressive disorder, single episode, unspecified; G47.00 Insomnia, unspecified; E78.5 Hyperlipidemia, unspecified; M19.90 Unspecified osteoarthritis, unspecified site; D64.9 Anemia, unspecified; Z90.49 Acquired absence of other specified parts of digestive tract; Z82.49 Family history of ischemic heart disease and other diseases of the circulatory system; Z79.899 Other long term (current) drug therapy; Z79.82 Long term (current) use of aspirin
CPT/HCPCS: 36415; 71275; 74174; 80053; 80061; 80307; 81001; 82150; 82550; 82553; 83036; 83690; 83735; 83880; 84100; 84443; 84484; 85025; 85379; 93005; 93010; 93306; 99291; J2405; J3490; J7030

== ENCOUNTER → 2018-07-03 | Outpatient (CLI) | payer BC ==
--- NOTE | 2018-07-03 09:50 | ST Modified Barium Swallow ---
Recommendation - Recommendations Recommendations: No oral or pharyngeal deficits noted. May benefit from further GI assessment due to nature of symptoms. Medical Diagnoses - Medical Diagnoses Medical Diagnosis Description & ICD-10 Code(s): dysphagia R13.10 Other Medical Diagnoses/Co-Morbidities: per patient report: possible reflux, heart aneurysm, ankle surgery ST Modified Barium Swallow - General Date: 07/03/18 Referring Physician: Dr. Garcia Risks/Precautions: None Date of Onset: 12/13/17 - approximate onset date. Reason for Referral: difficulty swallowing, painful swallowing - History History obtained from: Patient -: Medical - Patient reports swallowing difficulty starting approximately 6 months ago. She states that she has a constant globus sensation, and occasional "choking" episodes. Will cough at times when eating solids, not when drinking liquids. No recent pneumonia, but does report frequent bronchitis. Patient is currently avoiding potato and bread based foods, as well as fried foods and hamburgers, stating that these cause pain in her chest when she eats them. Also reports that she will wake up at night feeling like she can't swallow. Medications: per patient report: omeprazole, blood pressure medication, gabapentin, anti-inflammatory medication, welburtin Allergies: per patient report: no known allergies, possible lactose intolerance not confirmed - Functional Status Prior Functional Status: INDEPENDENT: feeding - independent Current Functional Limitations: feeding - Subjective Patient/caregiver goal(s): safe swallow Cognitive-Linguistic Function: WNL Speech Intelligibility: WNL Current Nutritional Means: PO Current PO diet: Regular - avoids specific foods Current symptoms: Coughing, c/o Globus sensation Pain: Patient reports, 0/5 - Objective Assessment: Upright, Left Lateral - Food Trials Used Food trials used: Thin liquids, Pureed, Regular The patient: Was Able to Self Feed - Oral-Motor Skills Dentition: Full Velo-pharyngeal function: Unremarkable Laryngeal Function: clear voicing - Assessment Oral prep: Normal Labial closure: Adequate Leakage: None Mastication: Adequate Lingual Movement: Normal Oral stage: Normal for this Procedure - Pharyngeal Stage Initiation of Pharyngeal Stage Reflex: Normal Decreased laryngeal elevation: No Reduced Velopharyngeal Closure: no Reduced pressure generation: No reduced tongue-based retraction: No Pre-swallow pooling in valleculae: None Pre-Swallow pooling in pyriforms: None Reduced Thyro-Hyoid approximation: No Reduced epiglottic excursion: No Reduced pharyngeal peristalsis/contraction: No Post-swallow residulas vallecular: None Post-Swallow residuals in pyriforms: None - Esophageal Stage Cricopharyngeal Function: Normal - Fall Risk Assessment Medications/Conditions that increase fall risks include: Antidepressants, sedatives, anti-arrhythmic, diuretic, benzodiazipenes, neuroleptics. BP regulation problems, cardiac problems, balance or gait deficits, neurological problems. Is patient considered at risk for falls: no Fall Risk Actions Taken: No action needed - Behavioral Observations During evaluation process patient: was pleasant, provided medical history - Treatment / Educational Needs: Treatment/Education Needs: Treatment consisted of patient education on the role of the Speech Pathologist. Patient's plan of care and golas were communicated as well as scheduling and attendance policies. Recommendations for initial home program were shared. Patient demonstrated understanding and verbalized agreement. - Impression/Summary Laryngeal Penetration: Yes, Flash - with subsequent straw sips of thin liquid only Tracheal Aspiration: no Patient presents with: Normal swallow at eval Risk of Aspiration: Minimal Evaluation and Findings: Patient reported sensation of globus during test, no residuals seen in pharynx. Due to nature of symptoms, GI component may be involved. - Recommendations Solid diet recommendations: Regular Liquid Diet Modification: Thin Pt/Family education and followup with MD: Yes Dysphagia therapy with CERTIFIED HEARING INSTRUMENT DISPENSER: no Reflux Precautions: Taught to Patient Recommended techniques: Fully Upright During Meal Supervision: Independent Information, Precautions and Recommendations: Patient (Written), Patient (Verbal) - Time Total Time: 30 - Plan of Care Strategies to optimize patient understanding include:: ongoing assessment of educational needs, implementation of educational strategies, and re-education. - - -: Thank you for the opportunity to work with this patient and his/her family. Should you have any questions about this patient's plan or progress, I can be reached at [phone].
--- NOTE | 2018-07-03 13:46 | RADIOLOGY REPORT (SQ) ---
EXAM DESCRIPTION: MAXWELL SWALLOW COMPLETED DATE/TIME: 07/03/2018 9:14 am REASON FOR STUDY: DYSPHAGIA (R13.10) R13.10 DYSPHAGIA, UNSPECIFIEDglobus sensation COMPARISON: None. TECHNIQUE: Videofluoroscopic swallowing examination was performed in conjunction with speech patholo gy. Videofluoroscopic imaging was obtained and reviewed and these are the findings: RADIATION DOSE: 1 minutes 36 seconds of fluoroscopy was used. 1 images saved to PACS. LIMITATIONS: None FINDINGS: The patient was brought into the fluoro room and placed upright on a modified barium swall ow chair. The patient was then given multiple consistencies mixed with barium to swallow under live fluoroscopic video guidance. According to the Speech Pathologist there was trace laryngeal penetrati on with thin liquids. No aspiration. IMPRESSION: TRACE LARYNGEAL PENETRATION. NO ASPIRATION.PLEASE SEE SPEECH PATHOLOGIST REPORT FOR OTH ER FINDINGS AND RECOMMENDATIONS. COMMENT: Quality ID [id number]: Final reports for procedures using fluoroscopy that document radiation exp osure indices, or exposure time and number of fluorographic images (if radiation exposure indices are not available) TECHNICAL DOCUMENTATION: JOB ID: [id number] [employer]- All Rights Reserved Reading location - IP/workstation name: [email or web address]
== END ==
LOC: RAD 07:56
PROVIDERS: ATTEND Otolaryngology
DX: R13.10 Dysphagia, unspecified (principal)
CPT/HCPCS: 74230

== ENCOUNTER 2019-11-25 06:00 | Emergency (ER) | payer BC ==
[2019-11-25 07:29] LABS: ABSOLUTE EOSINOPHILS # (AUTO) 0.2 10^3/uL (0.0-0.6); ABSOLUTE LYMPHOCYTES (AUTO) 2.1 10^3/uL (0.5-4.7); ABSOLUTE MONOCYTES (AUTO) 0.7 10^3/uL (0.1-1.4); ABSOLUTE NEUT (AUTO) 3.6 10^3/uL (1.7-8.2); BASOPHILS % (AUTO) 0.5 % (0-2); EOSINOPHILS % (AUTO) 2.4 % (0-6); HEMOGLOBIN 12.7 g/dL (12.0-15.5); LYMPHOCYTES % (AUTO) 31.2 % (13-45); MEAN CORPUSCULAR HEMOGLOBIN 29.2 pg (27.0-33.4); MEAN CORPUSCULAR HGB CONC 33.3 g/dL (32.0-36.0); MEAN CORPUSCULAR VOLUME 87 fl (80-97); MONOCYTES % (AUTO) 11.1 % (3-13); PLATELET COUNT 282 10^3/uL (150-450); RED BLOOD COUNT 4.34 10^6/uL (3.72-5.28); RED CELL DISTRIBUTION WIDTH 13.2 % (11.5-14.0); SEGMENTED NEUTROPHILS % (AUTO) 54.8 % (42-78); TOTAL CELLS COUNTED % (AUTO) 100 %; WHITE BLOOD COUNT 6.6 10^3/uL (4.0-10.5)
[2019-11-25 07:39] LABS: APPEARANCE,URINE SLIGHTLY-CLOUDY; BILIRUBIN,URINE NEGATIVE (NEGATIVE); CALCIUM OXALATE CRYSTALS,URINE FEW /HPF; COLOR,URINE YELLOW; GLUCOSE, URINE NEGATIVE (NEGATIVE); KETONES,URINE TRACE mg/dL (NEGATIVE); LEUKOCYTE ESTERASE,URINE TRACE (NEGATIVE); NITRITE,URINE NEGATIVE (NEGATIVE); PROTEIN,URINE NEGATIVE (NEGATIVE); URINE SPECIFIC GRAVITY 1.026
[2019-11-25 07:55] LABS: ALKALINE PHOSPHATASE 68 U/L (38-126); ANION GAP 9 (5-19); ASPARTATE AMINO TRANSFERASE 22 U/L (14-36); BILIRUBIN,TOTAL 0.4 mg/dL (0.2-1.3); BLOOD UREA NITROGEN 22 mg/dL (7-20); CALCIUM 9.3 mg/dL (8.4-10.2); CARBON DIOXIDE 25 mmol/L (22-30); CHLORIDE 105 mmol/L (98-107); GLUCOSE 103 mg/dL (75-110); POTASSIUM 4.5 mmol/L (3.6-5.0); TOTAL PROTEIN 6.5 g/dL (6.3-8.2)
[2019-11-25] MEDS ORDERED: NORMAL SALINE 1000 ML 1,000 ML IV ONE (08:36)
[2019-11-25] MEDS ORDERED: PANTOPRAZOLE SODIUM 40 MG VIAL IV ONE (08:36)
[2019-11-25 10:18] LABS: C DIFFICILE GDH NEGATIVE (NEGATIVE)
[2019-11-25] MEDS ORDERED: MORPHINE SULFATE 10 MG/ML INJ IV ONE (10:26)
[2019-11-25] MEDS ORDERED: ONDANSETRON HCL INJ/PF 4 MG/2 ML SDV IV ONE (10:26)
--- NOTE | 2019-11-25 12:06 | RADIOLOGY REPORT (SQ) ---
EXAM DESCRIPTION: CT ABD/PELVIS WITH IV ORAL IMAGES COMPLETED DATE/TIME: 11/25/2019 11:17 am REASON FOR STUDY: abd pain/dark stools COMPARISON: 04/28/2017 TECHNIQUE: CT scan of the abdomen and pelvis performed using helical scanning technique with dynamic intravenous contrast injection. No oral contrast. Images reviewed with lung, soft tissue, and bone windows. Reconstructed coronal and sagittal MPR images reviewed. Delayed images for evaluation of the urinary system also acquired. All images stored on PACS. All CT scanners at this facility use dose modulation, iterative reconstruction, and/or weight based d osing when appropriate to reduce radiation dose to as low as reasonably achievable (ALARA). [facility]: Dose Right [facility]: CareDose [facility]: Dose Right [facility]: Teradose 4D [facility]: Hotelicopter CONTRAST TYPE AND DOSE: contrast/concentration: Isovue 350.00 mmol/ml; Total Contrast Delivered: 90. 0 ml; Total Saline Delivered: 70.0 ml RENAL FUNCTION: BUN 22, creatinine 0.73 RADIATION DOSE: CT Rad equipment meets quality standard of care and radiation dose reduction techniq ues were employed. CTDIvol: 11.1 - 14.7 mGy. DLP: 1345 mGy-cm.. LIMITATIONS: None. FINDINGS: LOWER CHEST: No significant findings. No nodules or infiltrates. LIVER: No focal masses. There is mild intrahepatic biliary ductal dilatation which is stable from pr ior exam. The common bile duct remains dilated. No distal stone or mass is identified. SPLEEN: Normal size. No focal lesions. PANCREAS: The pancreas is atrophic. GALLBLADDER: Prior cholecystectomy. ADRENAL GLANDS: No significant masses or asymmetry. RIGHT KIDNEY AND URETER: No solid masses. No significant calcifications. No hydronephrosis or hyd roureter. LEFT KIDNEY AND URETER: No solid masses. No significant calcifications. No hydronephrosis or hydr oureter. AORTA AND VESSELS: Mild atherosclerotic change. No aneurysmal dilatation. Celiac axis, SMA and brenna l arteries are patent. RETROPERITONEUM: No retroperitoneal adenopathy, hemorrhage or masses. BOWEL AND PERITONEAL CAVITY: Moderate amount of stool throughout the colon. No obstruction or mesent ryan inflammatory change. Postsurgical changes in the epigastric region presumably related to prior gastric bypass or fundoplication. Clinical correlation is needed. APPENDIX: The appendix is not visualized. There are clips in the right lower quadrant. PELVIS: No mass. No free fluid. Normal bladder. ABDOMINAL WALL: No masses. No hernias. BONES: Mild degenerative changes at L4-L5. There is disc space narrowing and endplate sclerosis. OTHER: No other significant finding. IMPRESSION: Postsurgical changes in the epigastric region most consistent with prior gastric bypass. There is a hiatal hernia. Changes may be related to prior fundoplication. Clinical correlation is needed. Moderate constipation. Prior cholecystectomy. Mild prominence of the intrahepatic bile ducts unchanged from prior exam. TECHNICAL DOCUMENTATION: JOB ID: [id number] Quality ID # [id number]: Final reports with documentation of one or more dose reduction techniques (e.g., Au tomated exposure control, adjustment of the mA and/or kV according to patient size, use of iterative reconstruction technique) 2010 [employer]- All Rights Reserved Reading location - IP/workstation name: [email or web address]
[2019-11-25] MEDS ORDERED: METOCLOPRAMIDE HCL INJ/PF 10 MG/2 ML SDV IV ONE ×2 (12:29→12:44)
[2019-11-25] MEDS ORDERED: METOCLOPRAMIDE HCL ORAL SOLN 10 MG/10 ML UDCUP PO ONE ×2 (12:31→12:34)
[2019-11-25] MEDS ORDERED: LIDOCAINE 2% VISCOUS SOLN 15 ML UDCUP PO ONE (12:31)
[2019-11-25] MEDS ORDERED: MAG HYDROX/AL HYDROX/SIMETH SUSP 30 ML UDCUP PO ONE (12:31)
[2019-11-25 13:54] VITALS: BP 100/58
--- NOTE | 2019-11-25 13:56 | ER Document Report ---
Entered by GRADY OSMAN SCRIBE 11/25/19 0834 Acting as scribe for:LYLY VUONG MD ED GI/ - General Chief Complaint: Abdominal Pain Stated Complaint: ABDOMINAL PAIN, BLACK STOOLS, DISORIENTATION Time Seen by Provider: 11/25/19 07:26 Primary Care Provider: LADAN POWER MD [Primary Care Provider] - Follow up as needed Information source: Patient Notes: This 64 year old female patient presents to the emergency department today with complaints of diarrhea. Patient states she had diarrhea that lasted x2-3 days x2 weeks ago. Patient states it went away and she began to have diarrhea again yesterday, describing it as black in color. Patient states she has had diarrhea x5-6 times the last x24 hours. Patient reports sharp abdominal pain, nausea, headache, and feeling lightheaded. Denies fever, vomiting, or changes in appetite. Patient states she is not taking any new medications and was on a antibiotic for x5 days x2 weeks ago when the diarrhea started. TRAVEL OUTSIDE OF THE [place] IN LAST 30 DAYS: No - Related Data Allergies/Adverse Reactions: No Known Allergies Allergy (Verified 04/28/17 14:01) Past Medical History - General Information source: Patient - Social History Smoking Status: Never Smoker Cigarette use (# per day): No Lives with: Family Family History: Reviewed & Not Pertinent - Past Medical History Cardiac Medical History: Reports: Hx Hypercholesterolemia, Hx Hypertension Endocrine Medical History: Reports: Hx Hypothyroidism Musculoskeletal Medical History: Reports Hx Arthritis Psychiatric Medical History: Reports: Hx Depression Past Surgical History: Reports: Hx Appendectomy, Hx Section, Hx Cholecystectomy, Hx Gastric Bypass Surgery - 1992, Hx Hysterectomy, Hx Orthopedic Surgery, Hx Tonsillectomy Review of Systems - Review of Systems Constitutional: See HPI. denies: Fever EENT: No symptoms reported Cardiovascular: See HPI, Lightheaded Respiratory: No symptoms reported Gastrointestinal: See HPI, Abdominal pain, Diarrhea, Nausea. denies: Vomiting, Poor appetite Genitourinary: No symptoms reported Female Genitourinary: No symptoms reported Musculoskeletal: No symptoms reported Skin: No symptoms reported Hematologic/Lymphatic: No symptoms reported Neurological/Psychological: See HPI, Headaches -: Yes All other systems reviewed and negative Physical Exam - General General appearance: Appears well, Alert - HEENT Head: Normocephalic, Atraumatic Eyes: Normal Pupils: PERRL - Respiratory Respiratory status: No respiratory distress Chest status: Nontender Breath sounds: Normal Chest palpation: Normal - Cardiovascular Rhythm: Regular Heart sounds: Normal auscultation Murmur: No Normal capillary refill: Yes - Abdominal Inspection: Normal Distension: No distension Bowel sounds: Normal Notes: Tenderness with palpation to the RLQ and LLQ. - Extremities General upper extremity: Normal inspection. No: Edema General lower extremity: Normal inspection. No: Edema - Neurological Neuro grossly intact: Yes Cognition: Normal Orientation: AAOx4 - Psychological Associated symptoms: Normal affect, Normal mood - Skin Skin Temperature: Warm Skin Moisture: Dry Skin Color: Normal Course - Re-evaluation Re-evalutation: 11/25/19 13:44 Patient states her nausea is better at this time after the GI cocktail. No further vomiting. Still notes that there is some epigastric tenderness no rebound on exam. - Laboratory Result Diagrams: 11/25/19 07:10 11/25/19 07:10 Laboratory results interpreted by me: 11/25/19 11/25/19 07:10 07:10 BUN 22 H Lipase 21.2 L Urine Ketones TRACE H Urine Urobilinogen 4.0 H Ur Leukocyte Esterase TRACE H - Diagnostic Test Radiology reviewed: Image reviewed, Reports reviewed Radiology results interpreted by me: 11/25/19 13:48 CT scan of abdomen shows that there is prior surgery patient had gastric bypass. Patient does have a hiatal hernia and there is some scarring with surgical changes noted in this area questionable whether or not patient had a prior fundoplication patient has had a cholecystectomy. In the biliary tree system sh ow some dilatation which is no change from prior CT scan. No evidence for free air or perforation or any colitis problems no signs of any active bleeding patient does have moderate constipation. No obstruction seen. 11/25/19 13:48 Discharge - Discharge Clinical Impression: Diarrhea, Constipation by delayed colonic transit Condition: Stable Disposition: HOME, SELF-CARE Instructions: Abdominal Pain ([facility]), Antinausea Medication ([facility]) Additional Instructions: Constipation Constipation is a common problem. It is especially likely as you get older. Constipation is a common cause of abdominal pain, but sometimes causes no symptoms at all. Causes of constipation include certain medications, dehydration, diets, inactivity, and low-fiber intake. Rarely, it can be a symptom of underlying disease. The physician has evaluated you for this. Avoid constipation by eating a diet high in fiber, fruits, and vegetables. Drink plenty of liquids. Get regular exercise. If possible, avoid constipating medicines like narcotic pain medication. Some vitamin tablets can cause constipation. Stool softeners may be needed for difficult cases. An excellent stool softener is Konsyl which is available at [employer], and [employer] drug [employer] Study Course. Just add a teaspoon to a glass of pineapple or orange juice daily or twice a day if needed. Laxatives are useful for occasional constipation. You should use them only when necessary. Too-frequent use can make your bowels dependent on them. Some over the counter laxatives available without prescription are: Milk of Magnesia, 1-2 tablespoons twice a day Dulcolax, 5 mg pill or 10 mg suppository. Citrate of Magnesia, 4-5 ounces a day for a day or two For acute constipation, Fleet's Enemas and Dulcolax suppositories are helpful. Chronic, assisted use of laxatives or enemas is not a good idea. Your bowel may become dependant on them. You do not need to have a bowel movement every day. Many people do fine with a bowel movement every three or four days. You should call your doctor or return for re-evaluation if you pass blood in the stool, or if you develop fever or increasing abdominal pain.Abdominal Pain There are many causes of abdominal pain. Pain can mean a serious problem requiring surgery (such as appendicitis). It can also be an innocent problem that goes away on its own (such as a viral infection). Often, time must pass to determine the cause of pain. The physician does not feel that hospitalization is necessary, at present. Things may change within the next 24 hours. Call the doctor or come back for re- examination if any problems occur, such as: (1) Pain that becomes more severe, steady, or becomes concentrated in one specific area. Also, pain that is more severe with movement or coughing. (2) Vomiting that persists or becomes more frequent. (3) Blood in the vomitus, urine, or bowel movements. Blood in the stool may have a tarry or black appearance. (4) Shaking chills or fever greater than 100 degrees F. (5) The abdomen becomes more distended or swollen. (6) Bowel movements cease. (7) Failure to improve as expected. Today your work-up did not disclose any obstruction or any acute process requiring surgery or admission to the hospital. We do recommend as you discussed you have already talked to your health and safety instructor Dr. Sharp and you have an appointment to see that doctor tomorrow. Prescriptions: Omeprazole 40 mg PO DAILY #30 capsule. Metoclopramide HCl [Reglan] 10 mg PO QID PRN #40 tablet PRN Reason: prn nausea/vomiting Referrals: LADAN POWER MD [Primary Care Provider] - Follow up as needed I personally performed the services described in the documentation, reviewed and edited the documentation which was dictated to the scribe in my presence, and it accurately records my words and actions.
== END 2019-11-25 14:06 | disposition home or self-care (01) ==
LOC: ER 06:00
DX: K59.01 Slow transit constipation (principal); R19.7 Diarrhea, unspecified; K44.9 Diaphragmatic hernia without obstruction or gangrene; R11.0 Nausea; R10.813 Right lower quadrant abdominal tenderness; R10.814 Left lower quadrant abdominal tenderness; R10.816 Epigastric abdominal tenderness; R10.9 Unspecified abdominal pain; I10 Essential (primary) hypertension; Z98.84 Bariatric surgery status
CPT/HCPCS: 99284; 96361; 96374; 96375; 36415; 87045; 87205; 87209; 83690; 87177; 85025; 82270; 80053; 81001; 87324; 87449; 74177; J3490; J2765; J2270; C9113; J2405; J7030

== ENCOUNTER → 2020-05-25 | Outpatient (CLI) | payer BC ==
--- NOTE | 2020-05-25 19:46 | RADIOLOGY REPORT (SQ) ---
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 TECHNIQUE: Axial 3-D [id number] acquisition imaging performed through the brain in the area of t he [place] of [place]. Images reformatted using 3-D MIPS. LIMITATIONS: None. FINDINGS: SOURCE IMAGES: No unexpected findings on source images. No large masses. 3-D MIP: No aneurysm. No occlusions. No significant stenosis. OTHER: No other significant finding. IMPRESSION: NORMAL MRA OF THE [place]. TECHNICAL DOCUMENTATION: JOB ID: [id number] 2010 [employer]- All Rights Reserved Reading location - IP/workstation name: [email or web address]
--- NOTE | 2020-05-25 20:40 | RADIOLOGY REPORT (SQ) ---
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 COMPARISON: None. FINDINGS: No diffusion restriction. There is diffuse scattered small foci of increased T2 signal in the frontal white matter bilaterally. 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 No acute edema or mass effect. No hemosiderin deposition. Pituitary stalk is midline. No pituitary lesion. Extraocular muscles are symmetric. Optic nerves are symmetric. No displacement of the optic chiasm. No retro-orbital mass or edema. No mass or edema involving the occipital lobes or optic tracts. No enhancing intracranial masses. No filling defects in the major dural venous sinuses. No expansion of the IAC or its cranial nerves. Calvarial marrow is normal. Paranasal sinuses and mastoid air cells are clear. Normal flow-voids are seen in the major intracranial arteries. IMPRESSION: 1. 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 2. No acute infarct or other acute intracranial findings 3. No mass or other acute findings along the optic pathways.
== END ==
LOC: RAD 15:36
PROVIDERS: ATTEND Family Medicine
DX: H47.42 Disorders of optic chiasm in (due to) neoplasm (principal); Z86.73 Personal history of transient ischemic attack (TIA), and cerebral infarction without residual deficits
CPT/HCPCS: 82565; 70553; 70544; A9576